=== PATIENT | male | born 1990 | race Two or more races ===

== ENCOUNTER 2024-01-27 21:39 | Emergency (ER) | payer MEDICAID, SELFPAY ==
[2024-01-27 21:41] VITALS: BP 114/78; PULSE 87; RESP 18; TEMP 36.4; O2SAT 100
--- NOTE | 2024-01-27 21:59 | PD.EDMEDCL ---
ED Medical Clearance RME/HPI General Chief complaint: Medical Clearance Stated complaint: MEDICAL CLEARANCE Time Seen by Provider: 01/27/24 21:52 Arrival date/time: 01/27/24 21:39 Limitations: no limitations RME / HPI RME / HPI Narrative: Dr[facility] ED Evaluation: 33-year-old male coming in by police to get checked after being tased. The patient states that he was tased in his right lower back and was having pain or a knot in his left upper back. Otherwise no bleeding. He feels like it is a spasm. It is improved. Intermittent. Has not had any problems in the past. No surgeries. Related Information Previous Rx's ?Medication ?Instructions ?Recorded ibuprofen 800 mg tablet 800 mg PO TID PRN pain #30 tabs 07/20/19 acetaminophen 650 mg 650 mg PO Q8H PRN fever or pain 11/22/22 tablet,extended release (Tylenol 8 #30 tabs Hour) ibuprofen 600 mg tablet 600 mg PO Q8H PRN fever or pain 11/22/22 #30 tabs Allergies Allergy/AdvReac Type Severity Reaction Status Date / Time No Known Allergies Allergy Verified 11/22/22 16:01 Review of Systems Review of Systems Systems Reviewed: All systems reviewed, normal except as documented Past Medical History Past Medical History CARDIAC: Negative Congestive Heart Failure RESPIRATORY: Negative Chronic Obstructive Pulmonary Disease (COPD) GENITOURINARY: Negative Renal Disease ENDOCRINE: Negative Diabetes Mellitus Type 1 or Diabetes Mellitus Type 2 PSYCHO/SOCIAL: Positive Recreational Drug Use and Behavior Problems Family History FAMILY HISTORY: Negative Family Psychiatric Problems, Family Respiratory Disorders, Family Cardiac Disorders or Family Gastrointestinal Problems Social History SMOKING STATUS: Never smoker ED Exam Narrative Physical exam: Patient sitting in a chair in handcuffs General Limitations: Present no limitations General appearance: Present alert Head Head exam: Present atraumatic Eye Eye exam: Present normal appearance and EOMI ENT ENT exam: Present normal exam, normal oropharynx and mucous membranes moist Neck Neck exam: Present normal inspection, full ROM and trachea midline Chest Chest inspection: Present normal inspection and symmetric chest wall rise Respiratory Respiratory exam: Present normal lung sounds bilaterally Cardiovascular Cardiovascular exam: Present regular rate, normal rhythm and normal heart sounds Abdominal Exam Abdominal exam: Present soft and normal bowel sounds Extremities Exam Extremities exam: Present normal inspection and full ROM Back Exam Back exam: Present other (No taser instrument on his back. But right lower circumflex shows small hole in the chart. Muscle spasm at the left upper back. No midline tenderness palpation.) Neurological Exam Neurological exam: Present alert, oriented X3 and CN II-XII intact Psychiatric Psychiatric exam: Present normal affect and normal mood Skin Skin exam: Present warm, dry, intact and normal color Course Quality Measures none Orders Category Date Time Status Acetaminophen Tab [Tylenol Tab] Med 01/27/24 22:25 Discontinued 650 mg PO X1 ONE Vital Signs Vital signs: Vital Signs Temperature 97.6 F 01/27/24 21:41 Pulse Rate 87 01/27/24 21:41 Respiratory Rate 18 01/27/24 21:41 Blood Pressure 114/78 01/27/24 21:41 Pulse Oximetry (%) 100 01/27/24 21:41 Oxygen Delivery Method Room Air 01/27/24 21:41 Pulse ox is 100% on room air, which is normal according to my interpretation. Medical Clearance Patient data External records reviewed:: [facility] previous records (Per chart review, patient has no relevant previous ED visits or admissions to this facility.) Clinical information provided by:: patient Social determinants that could affect healthcare access:: none Patient has the following chronic illnesses:: none How is presenting disease/condition affected by chronic disease/condition?: no chronic disease Evaluation data The following diagnostics were reviewed and interpreted by me:: other (specify) (none) Lab and/or radiology exams considered but not ordered:: none Interpretation Summary: none Medications / Prescriptions Medications or Prescriptions considered but not ordered:: none Medication administrations:: Medication Administration History Discontinued Medications Acetaminophen (Acetaminophen 325 Mg Tablet) 650 mg PO X1 ONE Stop: 01/27/24 22:26 see above, if any Consultations Consultation(s) initiated? (list below): No Diagnosis Medical Clearance Differential Diagnosis: other (muscle spasm, musculoskeletal pain, musculoskeletal injury) Most likely diagnosis given after review of the tests above:: see below Admission Indicated Admission indicated?: not indicated Admission Request Was there a request for admission?: No Disposition Plan Disposition Plan: Discharge Discharge Attestation Discharge Attestation: The patient and all family members were given an opportunity to ask questions and understood the discharge instructions. Discharge instructions specifically effects, indications for sooner follow up or return to the emergency department, and the expected course of current diagnosis. Patient condition: Stable Discharge Plan Plan Patient Disposition: Long-Term/Court/Law Patient condition on transfer: Stable Prescriptions/Referrals Prescriptions/Med Rec: No Action ibuprofen 800 mg tablet 800 mg PO TID PRN (Reason: pain) Qty: 30 0RF acetaminophen [Tylenol 8 Hour] 650 mg tablet extended release 650 mg PO Q8H PRN (Reason: fever or pain) Qty: 30 0RF ibuprofen 600 mg tablet 600 mg PO Q8H PRN (Reason: fever or pain) Qty: 30 0RF Referrals: Rey Alamo PA-C [Primary Care Provider] - In 1 week Problem List Clinical Impression: Muscle spasm Patient/Caregiver Discharge Instructions Education Materials: ED Muscle Spasm Additional Instructions: You can use warm compresses on the area that is bothering you. Otherwise take Tylenol every 4-6 hours x 1 to 2 days. Return to emergency department worsening symptoms or any other concerns Print Language: [place]ian
[2024-01-27 22:05] VITALS: BMI 20.5
== END 2024-01-27 22:23 ==
PROVIDERS: Emergency Provider Emergency Medicine; PCP Physician Assistant
DX: Z02.89 Encounter for other administrative examinations (principal); M62.838 Other muscle spasm
CPT/HCPCS: 99282